=== PATIENT | female | born 1970 | race Two or more races ===

== ENCOUNTER → 2023-04-09 | Emergency (ER) | payer OTHER ==
[~2023-04-09] VITALS: Ht 162.6 cm; Wt 59.0 kg
[~2023-04-09] MED LIST: CLONAZEPAM0.5 MG; WELLBUTRIN SR150 MG
[2023-04-09 23:28] LABS: HEMATOCRIT 39.6 % (36.0-45.00); HEMOGLOBIN 13.8 g/dL (12.0-15.00); MEAN CELL VOLUME 86.9 fL (80.00-100.00); MEAN CORPUSCULAR HEMOGLOBIN 30.2 pg (27.00-32.0); MEAN CORPUSCULAR HGB CONC 34.8 g/dl (32.0-36.0); PLATELET COUNT 243 K/uL (150-450); RED BLOOD COUNT 4.56 M/uL (4.00-6.00); RED CELL DISTRIBUTION WIDTH 13.9 % (11.5-14.5)
[2023-04-09 23:48] LABS: CALCIUM 8.9 mg/dL (8.5-10.1); CREATININE SERUM 1.05 mg/dL (0.55-1.02); GFR 55.25; POTASSIUM 3.72 mEq/L (3.5-5.1)
[2023-04-10] LABS: PH,URINE 6.5 (5.0-8.0); URINE APPEARANCE Clear; URINE BILIRRUBIN Small (NEGATIVE); URINE BLOOD Negative; URINE COLOR Dark Yellow; URINE GLUCOSE Negative (NEGATIVE); URINE LEUKOCYTE Trace; URINE NITRATE Positive; URINE PROTEIN Negative (NEGATIVE)
[2023-04-10 00:03] LABS: URINE BACTERIA 1306.3 uL (0.0-1933); URINE EPITHELIAL CELLS 4.6 uL (0.0-38.8); URINE WBC 6.4 uL (0.0-23.2)
[2023-04-10 00:10] LABS: URINE RBC 0.8 uL (0.0-20.8)
== END | disposition left against medical advice (07) ==
LOC: ER 22:18 → EDBD 23:09 → ER 23:09
PROVIDERS: General Practice
DX: R53.81 Other malaise (principal); Z20.822 Contact with and (suspected) exposure to COVID-19

== ENCOUNTER 2023-04-10 18:46 | Emergency (ER) | payer OTHER ==
[~2023-04-10] VITALS: Ht 162.6 cm; Wt 56.2 kg
== END 2023-04-10 22:21 | disposition home or self-care (01) ==
LOC: ER 18:46
DX: N39.0 Urinary tract infection, site not specified (principal); Z88.8 Allergy status to other drugs, medicaments and biological substances